=== PATIENT | female | born 1960 | race African-American/Black ===

== ENCOUNTER 2019-09-02 03:27 | Inpatient (IN) | payer BC ==
[2019-09-02] VITALS (7 sets, daily range): BP systolic 131–219; BP diastolic 74–129
[~2019-09-02] VITALS: Ht 152.4 cm; Wt 79.8 kg
[~2019-09-02 03:27] MED LIST: ATORVASTATIN CA40 MG PO; CLONIDINE0.1 PO; COREG3.125 MG PO; COZAAR 25 MG TA25 M1 PO; FLEXERIL PO; HYDROCHLOROTH12.5 MG; HYDROCHLOROTHIA25 M1 PO; IBUPROFEN 200200 M1 PO; NORCO 10-325 T1 EACH PO; NORCO 5-325 TA1 EACH PO; PHENERGAN 25 MG25 M1 PO; PRILOSEC40 MG PO; THERA-M CAPLET1 EACH PO
[2019-09-02] MEDS ORDERED: ZETIA10 MG PO (03:49)
[2019-09-02] MEDS ORDERED: SPIRONOLACTONE50 MG PO (03:49)
[2019-09-02] MEDS ORDERED: LUNESTA3 MG PO (03:50)
[2019-09-02 04:19] LABS: HEMATOCRIT 42.8 % (37.0-47.0); HEMOGLOBIN 13.9 gm/dL (12.0-15.0); MCH 26.2 pg (26.0-34.0); MCHC 32.6 g/dL (28.0-37.0); MCV 80.4 fL (80.0-100.0); RBC 5.32 mil/uL (4.20-5.00); RDW 14.4 % (10.5-14.5); WBC 10.5 thou/uL (4.0-11.0)
[2019-09-02 04:28] LABS: CALCIUM 9.9 mg/dL (8.5-10.1); POTASSIUM 4.5 mmol/L (3.5-5.1)
[2019-09-02 04:37] LABS: TROPONIN-I 0.34 ng/mL (<0.06)
--- NOTE | 2019-09-02 09:02 | NUR ---
FIRST ATTEMPT TO CALL REPORT AT 0900
--- NOTE | 2019-09-02 12:54 | EKG ---
[facility] [address] ELECTROCARDIOGRAM REPORT Name: DHARMESH ROSA Room #: 352-P ADM IN M.R.#: [id number] Admission: 09/02/19 Attend Phys: Memo Chavez MD Discharge: Date of : 62 Report #: [id number] THIS REPORT FOR: cc: Kayla Santoyo MD, Julie MD Park,Torres Valadez MD ~ THIS REPORT FOR: //name// [facility] ED Test Date: 2019-09-02 Test Time: 04:00:03 Pat Name: DHARMESH ROSA Department: Room: [facility] Gender: F Development Disability Specialist: MPAK : 1960 Requested By: Kristine Ayers Order Number: [id number] MD: Torres eLe Measurements Intervals [place] Rate: 57 P: 51 CT: 140 QRS: -8 QRSD: 94 T: 11 QT: 393 QTc: 383 Interpretive Statements Sinus rhythm LVH by voltage Compared to ECG 10/21/2014 03:35:50 No significant changes Electronically Signed On 09-02-2019 12:53:25 ELECTRICAL AND INSTRUMENTATION MANAGER by Torres Lee [email or web address] <ELECTRONICALLY SIGNED> By: Torres Lee MD 09/02/19 1253 9 Torres Lee MD /NIK
--- NOTE | 2019-09-02 12:55 | EKG ---
[facility] [place] [address] ELECTROCARDIOGRAM REPORT Name: DHARMESH ROSA Room #: 352- ADM IN M.R.#: [id number] Admission: 09/02/19 Attend Phys: Memo Chavez MD Discharge: Date of : 62 Report #: [id number] THIS REPORT FOR: cc: Kayla Santoyo MD, Julie MD Park,Torres Valaedz MD ~ THIS REPORT FOR: //name// [facility] Test Date: 2019-09-02 Test Time: 10:14:53 Pat Name: DHARMESH ROSA Department: Room: [facility] Gender: F Oncology Coordinator: Mark MARINELLI : 1960 Requested By: Memo Chavez Order Number: [id number] MD: Torres Lee Measurements Intervals [place] Rate: 58 P: 13 OR: 139 QRS: -14 QRSD: 91 T: -3 QT: 397 QTc: 390 Interpretive Statements Sinus rhythm Ventricular premature complex Left ventricular hypertrophy Borderline T abnormalities, inferior leads Compared to ECG 10/21/2014 03:35:50 Ventricular premature complex(es) now present T-wave abnormality now present Electronically Signed On 09-02-2019 12:54:19 AUTO BENCH MECHANIC by Torres Lee [email or web address] <ELECTRONICALLY SIGNED> By: Torres Lee MD 09/02/19 1254 1014 1014 Torres Lee MD /EPI
--- NOTE | 2019-09-02 16:01 | NUR ---
Pt arrived to floor from emergency room per cart around 930am.Admission hx, assessment and careplan completed.Dr Lee notified about consult and he rounded on pt.Family here,and updates given.Pt will be having stress test on wednesday.Will continue to monitor.
[2019-09-02] MEDS ORDERED: MELATONIN5 MG PO (23:56)
--- NOTE | 2019-09-03 03:47 | NUR ---
Patient making slow progress towards outcome goals. BP tapering down. Slept some after Melatonin. Rhythm Sinus, bradycardic at times rate as low as 48. Denies pain. Up adlib to bathroom without difficulty. Calls out appropriately for needs. Aware of planned procedure, stress test wednesday and states she has no questions at this time.
[2019-09-03 03:55] VITALS: BP 140/79
[2019-09-03 07:24] VITALS: BP 141/77
--- NOTE | 2019-09-03 08:38 | HC ---
[facility] [place] [address] CONSULTATION Name: DHARMESH ROSA Room #: 352-P ADM IN M.R.#: [id number] Admission: 09/02/19 Attend Phys: Memo Chavez MD Discharge: Date of : 62 Report #: [id number] THIS REPORT FOR: cc: Kayla Santoyo MD,Kayla Lee,Torres Valadez MD ~ CC: Kayla Chavez DATE OF SERVICE: 09/02/2019 INDICATION: Positive troponins. HISTORY OF PRESENT ILLNESS: This is a pleasant 59-year-old female with a history of hypertension and hypercholesterolemia, presenting with dizziness. For the past few weeks, she has been experiencing dizziness, attributed to vertigo. She denies any chest pains or shortness of breath. Last evening, the dizziness was more severe and she went to an urgent care facility. She was found to have a systolic blood pressure greater than 200 and instructed to come to the hospital. We are asked to evaluate the patient for minimal troponin elevation. The patient reports no episodes of exertional angina, dyspnea, palpitations or orthopnea. She has no problems walking upstairs and has been trying to exercise. PAST MEDICAL HISTORY: Hypertension, hypercholesterolemia, follows with Dr. Kayla Chi. ALLERGIES: CODEINE. MEDICATIONS: At home include spironolactone, Zetia 10 mg, Coreg 3.125 b.i.d., Lipitor and losartan 25 mg daily. SOCIAL HISTORY: Denies tobacco use. FAMILY HISTORY: Negative for premature CAD. REVIEW OF SYSTEMS: A full 10-point review of systems performed. Only the pertinent positives and negatives are described in the HPI. PHYSICAL EXAMINATION: VITAL SIGNS: Blood pressure is 150/75, heart rate 60 beats per minute. GENERAL APPEARANCE: A mildly overweight female, in no acute distress. HEENT: Normocephalic, atraumatic. Oral mucosa moist. NECK: Supple. LUNGS: Clear to auscultation. CARDIAC: Regular rate and rhythm, S1, S2 positive. [facility] [address] [place] [address] CONSULTATION Name: DHARMESH ROSA Room #: [address] [place] [address] [place] [facility].#: [id number] Admission: 09/02/19 Attend Phys: Memo Chavez MD Discharge: Date of : 62 Report #: [id number] ABDOMEN: Soft, nontender. EXTREMITIES: No cyanosis, no edema. NEUROLOGIC: Alert and oriented x 3. ECG reveals sinus rhythm with LVH, PVCs. LABORATORY VALUES: Peak troponin 0.34. White count is 10.5, hemoglobin is 13.9, creatinine is 1.0. Chest x-ray is unremarkable. ASSESSMENT AND PLAN: 1. Minimal troponin elevation, offers no complaints of angina or dyspnea. May be related to hypertensive urgency with oxygen supply/demand mismatch. However, she does have risk factors and we will proceed with noninvasive stress testing and echocardiogram. 2. Dizziness, felt to be related to vertigo, consider meclizine. 3. Hypertension. Blood pressure has improved. Continue with ARB and beta marco therapy. May need a diuretic. 4. Hypercholesterolemia, continue with statin therapy. <ELECTRONICALLY SIGNED> By: Torres Lee MD 09/03/19 0838 [id number] 1148 Torres Lee MD /nt
[2019-09-03 11:26] VITALS: BP 130/72
[2019-09-03 15:35] VITALS: BP 127/78
--- NOTE | 2019-09-03 16:01 | NUR ---
pt is A&OX3, PT'vs are stable,but pt still has dizziness sometimes, pt HR is 51-77, caredilol is on hold , pt is going to have cardiac stress test and Echo tomorrow, pt denies pain and sob at this time.
[2019-09-03 20:46] VITALS: BP 148/85
--- NOTE | 2019-09-04 04:07 | NUR ---
Patient making slow progress towards outcome goals. Vital signs and rhythm stable. No bradycardia after Coreg held. No chest pain. NPO after MN for stress test today. Patient expressed understanding of procedure.
[2019-09-04 04:25] VITALS: BP 149/87
[2019-09-04 07:45] VITALS: BP 154/98
--- NOTE | 2019-09-04 09:33 | 2DMMODE ---
[facility] [place] [address] 2 D/M-MODE ECHOCARDIOGRAM Name: DHARMESH ROSA Room #: 352-P ADM IN M.R.#: [id number] Admission: 09/02/19 Attend Phys: Memo Chavez MD Discharge: Date of : 62 Report #: [id number] THIS REPORT FOR: cc: Kayla Santoyo MD, Julie MD Lundgren, Craig H. MD [facility] ~ APPROVED REPORT Study performed: 09/04/2019 08:27:14 EXAM: Comprehensive 2D, Doppler, and color-flow Echocardiogram Patient Location: Echo lab Room #: [facility] Status: routine BSA: 1.79 HR: 73 bpm BP: 154/98 mmHg Rhythm: NSR Other Information Study Quality: Good Indications Elevated Troponin Chest Pain Hypertension/HDD Dizziness 2D Dimensions RVDd: 29.12 mm IVSd: 9.89 (7-11mm) LVOT Diam: 19.33 (18-24mm) LVDd: 43.59 mm PWd: 9.69 (7-11mm) Ascending Ao: 27.21 (22-36mm) LVDs: 30.35 (25-40mm) Aortic Root: 31.45 mm IVC: 13.00 mm Volumes Left Atrial Volume (Systole) Single Plane 4CH: 29.65 mL Single Plane 2CH: 23.65 mL LA ESV Index: 16.00 mL/m2 Aortic Valve AoV Peak Wayne.: 1.32 m/s AO Peak Gr.: 6.93 mmHg LVOT Max P.31 mmHg [facility] [address] [place] [address] 2 D/M-MODE ECHOCARDIOGRAM Name: DHARMESH ROSA Room #: 352-P [facility] IN [place]#: [id number] Admission: 09/02/19 Attend Phys: Memo Chavez MD Discharge: Date of : 62 Report #: [id number] LVOT Max V: 0.91 m/s DANIELLE Vmax: 2.03 cm2 Mitral Valve E/A Ratio: 0.9 MV Decel. Time: 230.94 ms MV E Max Wayne.: 0.92 m/s MV A Wayne.: 1.03 m/s MV PHT: 66.97 ms IVRT: 115.34 ms Pulmonary Valve PV Peak Wayne.: 0.90 m/s PV Peak Gr.: 3.23 mmHg Pulmonary Vein P Vein S: 0.61 m/s P Vein A: 0.31 m/s P Vein D: 0.45 m/s P Vein A Dur.: 87.7 msec P Vein S/D Ratio: 1.36 Tricuspid Valve TR Peak Wayne.: 2.52 m/s TR Peak Gr.: 25.33 mmHg PA Pressure: 30.00 mmHg Left Ventricle The left ventricle is normal size. There is normal LV segmental wall motion. There is normal left ventricular wall thickness. The left ventricular systolic function is normal. The left ventricular ejection fraction is within the normal range. LVEF is 55-60%. Mild diastolic dysfunction is present (impaired relaxation pattern). Right Ventricle The right ventricle is normal size. The right ventricular systolic function is normal. Atria The left atrium size is normal. The right atrium size is normal. Aortic Valve The aortic valve is normal in structure. No aortic regurgitation is present. There is no aortic valvular stenosis. Mitral Valve The mitral valve is normal in structure. Mild mitral regurgitation. [facility] [place] [address] 2 D/M-MODE ECHOCARDIOGRAM Name: DHARMESH ROSA Room #: 352-P ADM IN M.R.#: [id number] Admission: 09/02/19 Attend Phys: Memo hCavez MD Discharge: Date of : 62 Report #: [id number] No evidence of mitral valve stenosis. Tricuspid Valve The tricuspid valve is normal in structure. There is trace tricuspid regurgitation. Estimated PAP 30 mmHg. There is no pulmonary hypertension. Pulmonic Valve The pulmonary valve is normal in structure. Trace pulmonic regurgitation. Great Vessels The aortic root is normal in size. IVC is normal in size and collapses >50% with inspiration. Pericardium There is no pericardial effusion. <Conclusion> The left ventricular systolic function is normal. There is normal LV segmental wall motion. LVEF is 55-60%. Mild diastolic dysfunction The aortic valve is normal in structure. No aortic regurgitation or stenosis The mitral valve is normal in structure. Mild mitral regurgitation. There is trace tricuspid regurgitation. Estimated pulmonary artery pressure of 30 mmHg. There is no pericardial effusion. <ELECTRONICALLY SIGNED> By: Sang Linda MD, FACC 09/04/19931 1 1 Sang Linda MD, FACC /INF
[2019-09-04 11:19] VITALS: BP 142/99
[2019-09-04 19:16] VITALS: BP 134/75
--- NOTE | 2019-09-04 20:00 | NUR ---
PT IS A&OX3, PT'S VS ARE STABLE, PT STILL HAS DIZZINESS AT TIME, PT HAS FINISHED HER CARDIAC STRESS TEST , NUCLEAR FINDINGS: POSITIVE FOR ISCHEMIA, SO PT WILL KEEP NPO AFTER MN FOR POSSIBLE TO GO TO [facility], PT UNDERSTANDS WELL.
[2019-09-05] VITALS (17 sets, daily range): BP systolic 112–151; BP diastolic 51–81
--- NOTE | 2019-09-05 03:12 | NUR ---
VSS-AFEBRILE. NPO AFTER MIDNIGHT FOR HEART CATH TODAY. SR-NO ECTOPY NOTED. LUNGS CLEAR TO AUSCULTATION IN ALL [place] BILATERALLY-ROOM AIR. OOB AD IVAN-STEADY ON FEET. CALLS APPROPRIATELY FOR ANY NEEDS.
--- NOTE | 2019-09-05 11:39 | NUR ---
PT IS A&OX3, PT'S VS ARE STABLE, PT HAS NPO AFTER MN. PT HAS TRANSFERED TO CCU ROOM 204 ABOUT 204 AT 1030AM, PT IS GOING TO [facility] AT AFTER NOON, PT'S FAMILY STAY PT'S BEDSIDE , PT DENIES PAIN AND SOB.
[2019-09-05] MEDS ORDERED: COZAAR 50 MG TA50 MG PO (17:41)
--- NOTE | 2019-09-05 17:48 | CATHLAB ---
[facility] [place] [address] INVASIVE PROCEDURE REPORT Name: DHARMESH ROSA Room #: 204-P ADM IN M.R.#: [id number] Admission: 09/02/19 Attend Phys: Memo Chavez MD Discharge: Date of : 62 Report #: [id number] THIS REPORT FOR: cc: Kayla Santoyo MD, Julie MD Park, Jin S. MD ~ APPROVED REPORT Study performed: 09/05/2019 13:35:38 Patient Details Patient Status: In-Patient Room #: The patient is a 59 year-old female Event Personnel Torres Lee Senior Director Finance, Severiano Chen RN, Kathy Gillette RTRenu Parrish David Monitor Procedures Performed Left Heart Cath w/or w/o Coronaries [id number] [facility] Indication Dyspnea, Positive stress test, The patient presented with hypertensive urgency, found to have a minimal troponin elevation. Risk Factors Hypercholesterolemia, Hypertension Procedure Narrative The Right Groin^ was infiltrated with 1% Lidocaine subcutaneous anesthesia. A PINNACLE 4FR Sheath #[id number] sheath was inserted into the RFA^. Coronary angiography was performed using coronary diagnostic catheters. The right coronary system was accessed and visualized with a JR4 catheter. The left coronary system was accessed and visualized with a JL4 catheter. Left ventricular/Aortic Valve gradient assessed via catheter pullback. Hemostasis was obtained with manual pressure following sheath removal without any complications. The patient tolerated the procedure well and there were no complications associated with the procedure. There was no hematoma. Intraoperative Conscious Sedation Sedation start time: 14.15 Case end Time: [facility] [address] [place] [address] INVASIVE PROCEDURE REPORT Name: DHARMESH ROSA Room #: 204-P [facility] IN M.Mark.#: [id number] Admission: 09/02/19 Attend Phys: Memo Chavez MD Discharge: Date of : 62 Report #: [id number] 14.39 Fentanyl 50 mcg Versed 1.5 mg Fluoro Time: 3.30 minutes Dose: DAP 3192.00 cGycm2 813 mGy Contrast Type and Amount: Visipaque 55 ml Coronary Angiography The patient's coronary anatomy is right dominant. Diagnostic Cath Left Main The Left main artery is a large caliber vessel, patent with no flow-limiting lesions. LAD The LAD is a moderate size caliber vessel, traversing the anterior wall and wrapping around the apex. This vessel is patent with no flow-limiting lesions. Diagonal 1 This vessel is patent with no flow-limiting lesions. Circumflex The left circumflex artery supplies 2 obtuse marginal arteries. OM1 This vessel is patent with no flow-limiting lesions. OM2 This is a moderate size caliber vessel, patent with no flow-limiting lesions. Right Coronary The RCA is a dominant vessel, patent with no flow-limiting lesions. R PDA This vessel is patent with no flow-limiting lesions RPLV This vessel is patent with no flow-limiting lesions Left Ventriculography Left Ventriculography was not performed. Ejection Fraction was 55-60% based off patient's Nuclear Cardiac Stress Test. An LV EDP was measured and there is no gradient across the outflow tract. Hemodynamics The aortic pressure is 157/92 mmHg with a mean of 108 mmHg. The left ventricular pressure is 165/7 mmHg with a mean of mmHg. The left ventricular end diastolic pressure is 14 mmHg. There was no gradient across the aortic valve upon pullback. Pullback from the left ventricle to the aorta revealed no gradient across the aortic valve. Conclusion 1. Angiographically normal coronary arteries. [facility] [address] [place] [address] INVASIVE PROCEDURE REPORT Name: DHARMESH ROSA Stevenson Room #: 204-P [facility] IN .R.#: [id number] Admission: 09/02/19 Attend Phys: Memo Chavez MD Discharge: Date of : 62 Report #: [id number] 2. Normal LV systolic function. 3. Recommend risk factor management. <ELECTRONICALLY SIGNED> By: Torres Lee MD 09/05/191746 46 46 Torres Lee MD /INF
--- NOTE | 2019-09-05 18:43 | NUR ---
PT A TRANSFER FROM [facility]. HAD CARDIAC CATH THIS AM WITHOUT INVERVENTION. DENIED HAVING PAIN OR DISCOMFORT. RIGHT GROIN INCISION C/D/I. NO HEMATOMA NOTED. SEEN BY DR. HENDERSON. ORDERS GIVEN TO DISCHARGE PT AFTER BEDREST. DISCHARGE INSTRUCTIONS GIVEN TO PT. PT VERBERLISED UNDERSTANDING.
== END 2019-09-05 18:54 | disposition home or self-care (01) | DRG 287 ==
LOC: ER 03:27 → 3W 05:22 → EROBS 05:22 → 3W 09:30 → 2N 09-05 10:51 → ENTRNSPT 09-05 18:40 → 2N 09-05 18:54
PROVIDERS: Emergency Medicine Emergency Medical Services; ADMIT Internal Medicine
PROC: B211YZZ Fluoroscopy of Multiple Coronary Arteries using Other Contrast (ICD-10-PCS; principal; 2019-09-05)
PROC: 4A023N7 Measurement of Cardiac Sampling and Pressure, Left Heart, Percutaneous Approach (ICD-10-PCS; principal; 2019-09-05)
DX: I16.0 Hypertensive urgency (principal); I10 Essential (primary) hypertension; E78.00 Pure hypercholesterolemia, unspecified; G47.00 Insomnia, unspecified; E66.01 Morbid (severe) obesity due to excess calories; E78.5 Hyperlipidemia, unspecified; R79.89 Other specified abnormal findings of blood chemistry; Z98.891 History of uterine scar from previous surgery; Z79.899 Other long term (current) drug therapy; Z88.6 Allergy status to analgesic agent; Z68.34 Body mass index [BMI] 34.0-34.9, adult
CPT/HCPCS: 10879